=== PATIENT | female | born 1985 | race Caucasian/White ===

== ENCOUNTER 2020-03-15 13:35 | Emergency (ER) | payer BC, SELFPAY ==
[~2020-03-15] VITALS: Ht 162.6 cm; Wt 49.9 kg
[2020-03-15 13:44] VITALS: BP 121/79
--- NOTE | 2020-03-15 13:52 | NUR ---
PATIENT PRESENTS TO ED WITH COUGH, HEADACHE AND SORE THROAT SINCE SATURDAY . DENIES N/V/D; SKIN IS PINK/WARM/DRY; AAOX4 WITH EVEN AND STEADY GAIT; LUNGS CLEAR BL; HR EVEN AND REGULAR; PT DENIES ANY FEVER, CP, SOB, OR COUGH AT THIS TIME; PATIENT STATES PAIN OF 0/10 AT THIS TIME; VSS; PATIENT POSITIONED FOR COMFORT; HOB ELEVATED; BEDRAILS UP X2; BED DOWN. ER MD MADE AWARE OF PT STATUS.
[2020-03-15 15:17] VITALS: BP 121/79
--- NOTE | 2020-03-15 15:17 | NUR ---
Patient discharged with v/s stable. Written and verbal after care instructions given and explained. Patient verbalized understanding. Ambulatory with steady gait. All questions addressed prior to discharge. Advised to follow up with PMD.
== END 2020-03-15 15:17 | disposition home or self-care (01) ==
LOC: MED 13:35
DX: J45.909 Unspecified asthma, uncomplicated (principal)
CPT/HCPCS: 99283

== ENCOUNTER 2022-06-17 06:38 | Emergency (ER) | payer BC, OTHER ==
[~2022-06-17] VITALS: Ht 154.9 cm; Wt 79.4 kg
[2022-06-17 06:45] VITALS: BP 94/47
[2022-06-17] MEDS ORDERED: NACL 0.9% 1,000 ML IV ONE (07:15)
--- NOTE | 2022-06-17 07:30 | NUR ---
RECEIVED REPORT FROM ARY ANDERSON, ASSUMED CARE AT THIS TIME.
--- NOTE | 2022-06-17 07:56 | NUR ---
PATIENT LYING IN BED WITH EYES OPEN. 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
[2022-06-17] MEDS ORDERED: IBUP-2213 PO ×2 (09:25→09:35)
[2022-06-17] MEDS ORDERED: PRED20TA5 PO ×2 (09:25→09:35)
--- NOTE | 2022-06-17 09:40 | NUR ---
IV removed, catheter intact and site benign. Applied folded 4x4 gauze and tape to stop bleeding.
[2022-06-17 09:43] VITALS: BP 101/58
--- NOTE | 2022-06-17 09:43 | NUR ---
Patient discharged with v/s stable. Written and verbal after care instructions ABOUT UPPER RESPIRATORY INFECTION AND COUGH given and explained. Patient alert, oriented and verbalized understanding of instructions. Ambulatory with steady gait. All questions addressed prior to discharge. ID band removed. Patient advised to follow up with PMD. Rx of IBUPROFEN AND DELTASONE given. Patient educated on indication of medication including possible reaction and side effects. Opportunity to ask questions provided and answered.
== END 2022-06-17 09:43 | disposition home or self-care (01) ==
LOC: MED 06:38
DX: J06.9 Acute upper respiratory infection, unspecified (principal); J45.909 Unspecified asthma, uncomplicated
CPT/HCPCS: 71045; 96360; 99285; J7030

== ENCOUNTER 2023-04-22 12:25 | Emergency (ER) | payer OTHER ==
[~2023-04-22] VITALS: Ht 152.4 cm; Wt 78.2 kg
[~2023-04-22 12:25] MED LIST: IBUP-2213 PO; PRED20TA5 PO
[2023-04-22 12:38] VITALS: BP 143/99; PULSE 87; RESP 16; TEMP 97.4; O2SAT 100
[2023-04-22] MEDS ORDERED: diphenhydrAMINE 50 MG/ML VIAL IVP ONE (14:30)
[2023-04-22] MEDS ORDERED: KETOROLAC 30 MG/ML VIAL IVP ONE (14:30)
[2023-04-22] MEDS ORDERED: PROCHLORPERAZINE 10 MG/2 ML VIAL IVP ONE (14:30)
== END 2023-04-22 15:58 | disposition home or self-care (01) ==
LOC: MED 12:25
DX: G43.909 Migraine, unspecified, not intractable, without status migrainosus (principal); J45.909 Unspecified asthma, uncomplicated; Z79.899 Other long term (current) drug therapy; Z79.1 Long term (current) use of non-steroidal anti-inflammatories (NSAID)
CPT/HCPCS: 70450; 96374; 96375; 99285; J0780; J1200; J1885

== ENCOUNTER 2023-11-29 16:57 | Emergency (ER) | payer OTHER ==
[~2023-11-29] VITALS: Ht 152.4 cm; Wt 79.8 kg
[2023-11-29 17:05] VITALS: BP 149/96; PULSE 89; RESP 15; TEMP 98.2; O2SAT 100
[2023-11-29] MEDS: KETOROLAC 30 MG/ML VIAL IM ONE (17:44)
== END 2023-11-29 18:10 | disposition home or self-care (01) ==
LOC: MED 16:57
DX: M25.562 Pain in left knee (principal); J45.909 Unspecified asthma, uncomplicated; Z79.1 Long term (current) use of non-steroidal anti-inflammatories (NSAID); Z79.899 Other long term (current) drug therapy
CPT/HCPCS: 96372; 99283; J1885